=== PATIENT | female | born 1995 | race Asian ===

== ENCOUNTER 2020-12-31 18:08 | Emergency (ER) | payer OTHER ==
[2020-12-31 18:19] VITALS: BP 134/76
[2020-12-31] MEDS ORDERED: KETOROLAC 30 MG/ML VIAL IM STA (18:42)
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
== END 2020-12-31 19:13 | disposition home or self-care (01) ==
LOC: ED 18:08
DX: M54.6 Pain in thoracic spine (principal); M54.2 Cervicalgia; V43.02XA Car driver injured in collision with other type car in nontraffic accident, initial encounter
CPT/HCPCS: 96372; 99283; 99284

== ENCOUNTER 2022-03-18 23:25 | Outpatient (CLI) | payer OTHER | END 2022-03-18 23:26 | disposition home or self-care (01) | LOC: LAB 23:25 | PROVIDERS: ATTEND Nurse Practitioner | DX: U07.1 COVID-19 (principal) ==